=== PATIENT | female | born 1950 | race Asian ===

== ENCOUNTER 2018-10-13 12:27 | Emergency (ER) | payer OTHER, MEDICARE ==
[~2018-10-13] VITALS: Ht 152.4 cm; Wt 71.2 kg
[2018-10-13 12:45] VITALS: BP 104/62; Ht 152.4 cm; Wt 71.2 kg
[2018-10-13 13:15] LABS: PLATELET COUNT 331 x10^3mcL (130-400); RED CELL DISTRIBUTION WIDTH 13.4 % (11.5-14.5)
[2018-10-13 13:16] LABS: BASOPHIL % 0 % (0-2)
[2018-10-13 13:28] LABS: CALCIUM 10.2 mg/dL (8.5-10.1); CARBON DIOXIDE 23.5 mmol/L (21-32); CREATININE SERUM 1.3 mg/dL (0.6-1.0); POTASSIUM SERUM 4.1 mmol/L (3.5-5.1)
[2018-10-13 13:32] LABS: ALBUMIN 4.2 g/dL (3.4-5.0); BILIRUBIN TOTAL 0.47 mg/dL (0.20-1.00)
[2018-10-13 13:39] LABS: TOTAL PROTEIN, SERUM 8.3 g/dL (6.4-8.2)
== END 2018-10-13 15:46 | disposition home or self-care (01) ==
LOC: ED 12:27
PROVIDERS: Emergency Medicine
DX: K52.9 Noninfective gastroenteritis and colitis, unspecified (principal); N28.89 Other specified disorders of kidney and ureter; I10 Essential (primary) hypertension; E11.9 Type 2 diabetes mellitus without complications; Z90.710 Acquired absence of both cervix and uterus
CPT/HCPCS: J2405; J7030; Q0092

== ENCOUNTER 2020-03-04 20:00 | Emergency (ER) | payer OTHER ==
[~2020-03-04] VITALS: Ht 154.9 cm; Wt 74.4 kg
[2020-03-04 20:09] VITALS: Ht 154.9 cm; Wt 74.4 kg
[2020-03-04 23:49] VITALS: BP 119/80
== END 2020-03-04 23:49 | disposition home or self-care (01) ==
LOC: ED 20:00
DX: M54.30 Sciatica, unspecified side (principal)
CPT/HCPCS: Q0092